=== PATIENT | male | born 1945 | race Caucasian/White ===

== ENCOUNTER 2017-04-14 22:02 | Inpatient (IN) | payer MEDICARE ==
[~2017-04-14] VITALS: Ht 185.4 cm; Wt 115.4 kg
--- NOTE | ~2017-04-14 | PR ---
[place], [place] PROGRESS NOTE NAME: STEPHENIE HARPER UNIT #: [id number] ROOM: 526 DOCTOR: JERAMY DOWLING MD BIRTHDATE: [birth year] DOS: 04/16/2017 REASON FOR VISIT: Nonsustained ventricular tachycardia. SUBJECTIVE: The patient denies any chest pain, shortness of breath, complaining of being tired and fatigued, but no fever, no chills. Also having some lower extremity edema. No chest pains, no palpitations. REVIEW OF SYSTEMS: Review of the 8 systems negative except as mentioned above. RHYTHM STRIPS: The patient was in sinus rhythm. The patient had a 5-beat wide complex tachycardia, asymptomatic. PHYSICAL EXAMINATION: VITAL SIGNS: Blood pressure 114/59, pulse 98, respiratory rate 16. GENERAL: Alert, comfortable, in no acute distress. HEENT: Pupils are round and equal. No jaundice. Tongue was moist and pharynx clear. NECK: Supple, no distended neck veins, no carotid bruit. CHEST: Symmetrical, nontender. LUNGS: A few scattered rhonchi. HEART: Regular rhythm, no S3. Grade 1/6 systolic murmur. ABDOMEN: Obese, nontender. EXTREMITIES: Showed 1+ pitting edema bilaterally. Distal pulses palpable. SKIN: Warm and dry. No cyanosis, no clubbing. NEUROLOGIC: The patient is alert, oriented. RECTAL: Deferred. MEDICATIONS AND ALLERGIES: Reviewed. IMPRESSION: 1. Nonsustained ventricular tachycardia, 5 beats, asymptomatic. 2. Mild valvular heart disease, mild mitral regurgitation. 3. History of coronary artery disease. 4. Chronic kidney disease. 5. Obesity. 6. Home oxygen. 7. Tobacco use. RECOMMENDATIONS: Continue his current medications including metoprolol and Bumex. The patient is advised to keep his feet elevated. Check his magnesium level due to his 5-beat nonsustained V-tach. This is probably due to LV hypertrophy. He had normal LV function by 2D echo with EF 60%. The magnesium levels are normal. Cardiology will see as needed. [place], [place] PROGRESS NOTE NAME: STEPHENIE HARPER UNIT #: [id number] ROOM: 526 DOCTOR: JERAMY DOWLING MD BIRTHDATE: [birth year] Above treatment discussed with the patient and his family and all questions were answered. Risk factor modification for diet, exercise, weight loss as well as to quit smoking discussed. JERAMY DOWLING MD CM:HECTOR [id number] JERAMY DOWLING MD 04/16/17 2210 interface
--- NOTE | ~2017-04-14 | PR ---
[place], [place] PROGRESS NOTE NAME: STEPHENIE HARPER UNIT #: [id number] ROOM: 526 DOCTOR: SHWETA WOOD MD BIRTHDATE: [birth year] DOS: 04/20/2017 SUBJECTIVE: The patient was seen at his bedside today, 04/20/2017, for followup of acute on chronic diastolic heart failure and hypertension. The patient is sitting up and alert. He states that he had trouble breathing earlier, but it got better when he was given a breathing treatment. The patient is somewhat irritated today. He states that he is not getting fast enough service with his breathing treatments. He is also concerned about the status of his left kidney which he states has a stent in the ureter. He wants to know if someone can check the status of the stent. PHYSICAL EXAMINATION: VITAL SIGNS: Today, his pulse is 86 and regular, blood pressure is 108/51. He is afebrile. He weighs 115.1 kilograms with a body mass index of 33.5. NECK: Supple. He has no jugular distention. CHEST: Clear. HEART: Has a regular rhythm with an S4 gallop. ABDOMEN: Benign. EXTREMITIES: Showed trace edema bilaterally. LABORATORY DATA: Sodium today is 137 with potassium of 3.5, BUN of 42 and creatinine of 1.93. IMPRESSION: 1. Acute on chronic diastolic congestive heart failure, now compensated. 2. Mild mitral insufficiency. 3. History of coronary artery disease. The patient has no angina at this time. 4. Chronic renal insufficiency with worsening renal failure during this hospitalization. 5. Episode of nonsustained ventricular tachycardia, which has not yet recurred since its initial event. The patient does have normal left ventricular systolic function. 6. Chronic respiratory failure. The patient is on home oxygen. 7. Tobacco abuse. PLAN: The patient's BUN and creatinine continue to rise. I will decrease his bumetanide to 1 mg daily and we will continue to monitor his renal functions. I will defer assessment of his ureteral stent to his primary physicians. I thank the hospitalist service for asking our advice regarding his care. [place], [place] PROGRESS NOTE NAME: MEREDITHSTEPHENIE Rodriguez UNIT #: [id number] ROOM: 526 DOCTOR: SHWETA WOOD MD BIRTHDATE: [birth year] SHWETA WOOD MD CM:PNTRANS [phone] SHWETA WOOD MD 04/20/172325 interface
--- NOTE | ~2017-04-14 | PR ---
[place], [place] PROGRESS NOTE NAME: MEREDITHSTEPHENIE Rodriguez UNIT #: [id number] ROOM: 526 DOCTOR: JERAMY DOWLING MD BIRTHDATE: [birth year] DOS: 04/17/2017 REASON FOR VISIT: Hypertension, nonsustained V-tach. HISTORY OF PRESENT ILLNESS: The patient is better. Breathing is better. Edema is improving. Denies any chest pain, palpitations, dizziness. No orthopnea. REVIEW OF SYSTEMS: Review of the 8 systems negative except as mentioned above. PHYSICAL EXAMINATION: VITAL SIGNS: Blood pressure ____, pulse 78, respiratory rate 20. Rhythm strips, the patient is in sinus rhythm. GENERAL: Alert, comfortable, in no acute distress. HEENT: Pupils are round and equal. Tongue was moist. NECK: Supple. No distended neck veins. No carotid bruit. CHEST: Nontender. LUNGS: A few scattered rhonchi, but good air entry bilaterally. HEART: Regular rhythm. No S3. No palpable thrills. ABDOMEN: Morbidly obese, nontender. EXTREMITIES: Show 1+ edema. Distal pulses are palpable. SKIN: Warm and dry. No cyanosis, no clubbing. MEDICATIONS AND ALLERGIES: Reviewed. IMPRESSION: 1. Nonsustained ventricular tachycardia. No recurrence and his magnesium levels are normal. Left ventricular systolic function is normal. 2. Hypertension, stable. 3. Congestive heart failure, acute on chronic diastolic dysfunction. Continue diuretics. 4. Mild valvular heart disease, mild mitral regurgitation. 5. Coronary artery disease, stable. 6. Chronic kidney disease: Monitor his renal function. 7. Non-morbid obesity. 8. The patient was on home oxygen. 9. Tobacco abuse. The patient has been counseled to quit smoking. RECOMMENDATIONS: There is no family at bedside. Continue medications as above. Cardiology will see as needed and switch to p.o. diuretics tomorrow. [place], [place] PROGRESS NOTE NAME: HARPERSTEPHENIE UNIT #: [id number] ROOM: 526 DOCTOR: JERAMY DOWLING MD BIRTHDATE: [birth year] JERAMY DOWLING MD CM:HECTOR [id number] JERAMY DOWLING MD 04/17/17 1608 interface
--- NOTE | ~2017-04-14 | PR ---
[place], [place] PROGRESS NOTE NAME: STEPHENIE HARPER [facility] #: [id number] UNIT #: [id number] ROOM: 526 DOCTOR: SHWETA WOOD MD BIRTHDATE: [birth year] DOS: 04/19/2017 CARDIOLOGY PROGRESS NOTE SUBJECTIVE: The patient was seen at his bedside this morning 04/19/2017 for followup of acute on chronic diastolic heart failure and hypertension with an episode of nonsustained ventricular tachycardia. The patient was sleeping when I entered the room. He was lying flat in bed on his right side and breathing easily. He denied any cough or chest pain. He still does have some mild lightheadedness when he sits up quickly. PHYSICAL EXAMINATION: VITAL SIGNS: His pulse is 100 and regular, blood pressure is 114/75, he has temperature of 99.2. I and O for the last 24 hours are 2135 and 3875 mL, respectively, with a negative fluid balance of 1740 for the last 24 hours. His weight is down one-half kilogram from yesterday. NECK: Supple. He has no jugular distention. Carotids are full. LUNGS: Respirations are unlabored. His chest has decreased breath sounds at the bases, but no wheezes or rales. HEART: Has a regular rhythm with a fourth heart sound, but no third heart sound or murmur. The PMI could not be felt. ABDOMEN: Obese but otherwise benign. EXTREMITIES: Wrapped but he had no obvious edema. LABORATORY STUDIES: Today showed a hemoglobin of 11.5 with hematocrit of 36.6, white count 5300, and platelet count 184,000. Sodium is 137 with potassium 3.8, carbon dioxide is 41 and rising, BUN is 36 and rising, creatinine is 1.68 and rising. IMPRESSION: 1. Acute on chronic diastolic congestive heart failure, which appears to have been compensated. 2. Mild mitral insufficiency. 3. History of coronary artery disease without angina at present. 4. Chronic renal insufficiency. 5. Episode of nonsustained ventricular tachycardia, which has not recurred. The patient has normal left ventricular systolic function. 6. Chronic respiratory failure. The patient is on home oxygen. 7. Tobacco abuse. PLAN: Despite the fact that he was switched from IV to oral diuretics, he continues to diurese with gradually worsening signs of prerenal azotemia. I would like to continue his current dose of diuretics for one more day, and if his BUN and creatinine continue to increase, then we will have to think about decreasing his diuretics beginning tomorrow. No other cardiac workup is planned at this time. I thank the hospitalist physicians for asking our advice regarding his care. [place], [place] PROGRESS NOTE NAME: STEPHENIE HARPER UNIT #: [id number] ROOM: 526 DOCTOR: SHWETA WOOD MD BIRTHDATE: [birth year] SHWETA WOOD MD CM:PNTRANS [id number] SHWETA WOOD MD 04/19/17 1429 interface
--- NOTE | ~2017-04-14 | PR ---
[place], [place] PROGRESS NOTE NAME: STEPHENIE HARPER UNIT #: [id number] ROOM: 526 DOCTOR: SHWETA WOOD MD BIRTHDATE: [birth year] DOS: 04/18/2017 SUBJECTIVE: The patient was seen at his bedside today, 04/18/2017 for followup of his acute on chronic diastolic heart failure with hypertension and an episode of nonsustained ventricular tachycardia. The patient states that he is breathing easily. He was sitting at the side of his bed when I walked in and denied any palpitations or chest pain. He does admit that he is a little lightheaded when he stands up, but this seems to be getting better. PHYSICAL EXAMINATION: VITAL SIGNS: Today, his pulse is 95 and regular, blood pressure is 92/58. He has a temperature of 99.6. NECK: Supple. He has no jugular distention. Carotids are full. RESPIRATIONS: Unlabored. CHEST: Decreased breath sounds at the bases, but no wheezes or rales. HEART: Has a regular rhythm with a fourth heart sound, but no third heart sound or murmur. The PMI is not displaced. ABDOMEN: Obese, but otherwise benign. EXTREMITIES: Showed no edema. His legs are wrapped. LABORATORY DATA: Hemoglobin today is 12.0 with a white count of 5600 and platelet count of 197,000. Sodium is 135, potassium 3.7, BUN 27, creatinine 1.59 and improving. IMPRESSION: 1. Acute on chronic diastolic congestive heart failure, which appears to be well controlled. 2. Mild mitral insufficiency. 3. History of coronary artery disease without angina at this time. 4. Chronic renal insufficiency. 5. Episode of nonsustained ventricular tachycardia, which has not recurred. The patient has normal left ventricular function. 6. Chronic respiratory failure. The patient is on home oxygen. 7. Tobacco abuse. PLAN: Continue to monitor his electrolytes and maintain adequate potassium and magnesium levels. The patient was switched to oral diuretics and this should help with his orthostatic lightheadedness. We will continue to follow him intermittently. I thank the hospitalist physicians for asking our advice regarding his care. [place], [place] PROGRESS NOTE NAME: HARPERSTEPHENIE UNIT #: [id number] ROOM: 526 DOCTOR: SHWETA WOOD MD BIRTHDATE: [birth year] SHWETA WOOD MD CM:PNTRANS [phone] [id number] SHWETA WOOD MD 04/18/172044 interface
[~2017-04-14 22:02] MED LIST: ABILIFY10 MG PO; ACCUPRIL40 MG PO; AUGMENTIN 875 M1 TAB PO; MEDROL DOSEPAK4 MG PO; PROVENTIL0.09 MG/AC IH; [UNRECOGNIZED DRUG - REMARK]
[2017-04-14 22:08] VITALS: BP 139/105
[2017-04-14 22:30] VITALS: BP 126/62
[2017-04-14 22:43] VITALS: BP 126/87
[2017-04-14 22:45] LABS: BASO % 0.2 % (0.0-1.0); EOS # 0.1 10*3/uL (0.0-0.4); EOS % 0.9 % (1.0-4.0); HEMATOCRIT 39.7 % (42.0-52.0); HEMOGLOBIN 12.5 g/dl (14.0-18.0); IG # 0.1 10*3/uL (0.0-0.1); LYMPH # 1.2 10*3/uL (1.3-4.4); LYMPH % 13.2 % (27.0-41.0); MEAN CELL VOLUME 93.9 fl (80.0-94.0); MEAN CORPUSCULAR HGB 29.6 pg (27.0-31.0); MEAN CORPUSCULAR HGB CONC 31.5 g/dl (33.0-37.0); MEAN PLATELET VOLUME 11.1 fl (9.6-12.3); MONO # 0.8 10*3/uL (0.1-1.0); MONO % 8.9 % (3.0-9.0); NEUT # 6.9 10*3/uL (2.3-7.9); NEUT % 76.2 % (47.0-73.0); PLATELET COUNT AUTOMATED 160 10*3/uL (130-400); RED BLOOD COUNT 4.23 10*6/uL (4.50-5.90); WHITE BLOOD COUNT 9.1 10*3/uL (4.8-10.8)
[2017-04-14 22:53] VITALS: BP 106/68
[2017-04-14 22:55] LABS: PROTHROMBIN TIME 10.5 SECONDS (9.0-12.4)
[2017-04-14 23:01] LABS: ALBUMIN 3.1 gm/dl (3.1-4.5); BILIRUBIN, TOTAL 0.4 mg/dl (0.2-1.0); C-REACTIVE PROTEIN 8.58 MG/DL (0-0.3); POTASSIUM 3.7 mmol/L (3.5-5.1); TOTAL PROTEIN 7.5 gm/dL (6.4-8.2); TROPONIN I 0.03 ng/ml (<0.045)
[2017-04-14 23:11] VITALS: BP 118/56
[2017-04-14 23:28] VITALS: BP 112/82
[2017-04-15 00:06] LABS: BILIRUBIN NEGATIVE (NEGATIVE); BLOOD NEGATIVE (NEGATIVE); CLARITY SL CLOUDY (CLEAR); COLOR YELLOW (YELLOW); GLUCOSE NEGATIVE (NEGATIVE); KETONE NEGATIVE (NEGATIVE); LEUKO ESTERASE NEGATIVE (NEGATIVE); NITRITE NEGATIVE (NEGATIVE); PH 5.5 (5.0-9.0); PROTEIN NEGATIVE (NEGATIVE); UROBILINOGEN 0.2 E.U./dl (0.2-1.0)
[2017-04-15 00:14] LABS: BACTERIA 4+; EPITHELIAL CELLS 0-2; RBC 0-2 rbc/hpf (0-2); URINE REFLEX COMMENT YES (NO); WBC 0-2 wbc/hpf (0-5)
[2017-04-15 01:30] VITALS: BP 160/86
[2017-04-15 01:51] LABS: ABG BASE EXCESS 4.3 mmol/L (-2.0-2.0); ABG CO2 CONTENT 32.1 mmol/L (23-27); ABG HCO3 30.4 mmol/l (22-26); ABG TEMPERATURE 99.1 F (98.0-99.0); ARTERIAL BLOOD GAS PH 7.359 (7.35-7.45)
[2017-04-15] MEDS ORDERED: ACTOS15 M1 PO (03:19)
[2017-04-15] MEDS ORDERED: TUDORZA PRESS400 MCG INH (03:19)
[2017-04-15] MEDS ORDERED: SYMBICORT1 AE1 INH (03:20)
[2017-04-15] MEDS ORDERED: ALBUTEROL 3 ML 33 ML INH (03:21)
[2017-04-15] MEDS ORDERED: CLARITIN10 MG PO (03:21)
[2017-04-15] MEDS ORDERED: LOVASTATIN40 MG PO (03:22)
[2017-04-15] MEDS ORDERED: BP MED (03:22)
[2017-04-15] MEDS ORDERED: FLONASE ALLERG9.9 ML NAS (03:22)
[2017-04-15 04:00] VITALS: BP 119/68
[2017-04-15 04:31] LABS: BASO % 0.3 % (0.0-1.0); EOS # 0.1 10*3/uL (0.0-0.4); EOS % 0.9 % (1.0-4.0); HEMATOCRIT 41.1 % (42.0-52.0); LYMPH # 1.1 10*3/uL (1.3-4.4); LYMPH % 12.6 % (27.0-41.0); MEAN CELL VOLUME 94.7 fl (80.0-94.0); MEAN CORPUSCULAR HGB CONC 31.6 g/dl (33.0-37.0); MEAN PLATELET VOLUME 11.6 fl (9.6-12.3); MONO # 0.7 10*3/uL (0.1-1.0); MONO % 8.3 % (3.0-9.0); NEUT # 6.8 10*3/uL (2.3-7.9); NEUT % 77.7 % (47.0-73.0); PLATELET COUNT AUTOMATED 157 10*3/uL (130-400); RED BLOOD COUNT 4.34 10*6/uL (4.50-5.90); WHITE BLOOD COUNT 8.7 10*3/uL (4.8-10.8)
[2017-04-15 04:46] LABS: HEMOGLOBIN A1c 6.3 % (4.8-5.6)
[2017-04-15 05:00] LABS: FREE T4 1.45 ng/dl (0.76-1.46); PHOSPHOROUS 3.6 mg/dL (2.5-4.9); POTASSIUM 3.5 mmol/L (3.5-5.1)
[2017-04-15 05:08] LABS: THYROID STIM HORMONE (HS) 1.05 uIU/ml (0.358-4.75)
[2017-04-15 06:05] LABS: PROTHROMBIN TIME 10.4 SECONDS (9.0-12.4)
[2017-04-15 07:31] LABS: FOLIC ACID 15.6 ng/mL (>5.38); VITAMIN D, 25-HYDROXY 26.7 ng/mL (30-100)
[2017-04-15 08:00] VITALS: BP 108/67
[2017-04-15 12:00] VITALS: BP 100/50
[2017-04-15 16:00] VITALS: BP 120/58
[2017-04-15 20:00] VITALS: BP 122/64
[2017-04-16] VITALS: BP 96/52
[2017-04-16 07:46] LABS: BASO % 0.3 % (0.0-1.0); EOS # 0.2 10*3/uL (0.0-0.4); HEMATOCRIT 41.7 % (42.0-52.0); HEMOGLOBIN 12.9 g/dl (14.0-18.0); LYMPH # 1.1 10*3/uL (1.3-4.4); LYMPH % 14.8 % (27.0-41.0); MEAN CELL VOLUME 94.6 fl (80.0-94.0); MEAN CORPUSCULAR HGB 29.3 pg (27.0-31.0); MEAN CORPUSCULAR HGB CONC 30.9 g/dl (33.0-37.0); MEAN PLATELET VOLUME 11.4 fl (9.6-12.3); MONO # 0.8 10*3/uL (0.1-1.0); MONO % 10.4 % (3.0-9.0); NEUT # 5.2 10*3/uL (2.3-7.9); NEUT % 71.2 % (47.0-73.0); PLATELET COUNT AUTOMATED 162 10*3/uL (130-400); RED BLOOD COUNT 4.41 10*6/uL (4.50-5.90); RED CELL DISTRI WIDTH 15.7 % (0-14.5); WHITE BLOOD COUNT 7.2 10*3/uL (4.8-10.8)
[2017-04-16 07:58] LABS: POTASSIUM 3.7 mmol/L (3.5-5.1)
[2017-04-16 08:00] VITALS: BP 126/88
[2017-04-16 12:00] VITALS: BP 114/51
[2017-04-16] MEDS ORDERED: TOPROL XL50 M1 PO (12:25)
[2017-04-16 16:00] VITALS: BP 125/79
[2017-04-16 20:00] VITALS: BP 120/82
[2017-04-17] VITALS: BP 98/52
[2017-04-17 06:02] LABS: POTASSIUM 3.5 mmol/L (3.5-5.1)
[2017-04-17 06:19] LABS: BASO % 0.3 % (0.0-1.0); EOS # 0.3 10*3/uL (0.0-0.4); EOS % 4.3 % (1.0-4.0); HEMATOCRIT 36.5 % (42.0-52.0); HEMOGLOBIN 11.6 g/dl (14.0-18.0); LYMPH # 1.5 10*3/uL (1.3-4.4); LYMPH % 25.8 % (27.0-41.0); MEAN CELL VOLUME 93.8 fl (80.0-94.0); MEAN CORPUSCULAR HGB 29.8 pg (27.0-31.0); MEAN CORPUSCULAR HGB CONC 31.8 g/dl (33.0-37.0); MEAN PLATELET VOLUME 11.5 fl (9.6-12.3); MONO # 0.6 10*3/uL (0.1-1.0); MONO % 10.4 % (3.0-9.0); NEUT # 3.4 10*3/uL (2.3-7.9); NEUT % 58.9 % (47.0-73.0); PLATELET COUNT AUTOMATED 167 10*3/uL (130-400); RED BLOOD COUNT 3.89 10*6/uL (4.50-5.90); RED CELL DISTRI WIDTH 15.3 % (0-14.5); WHITE BLOOD COUNT 5.9 10*3/uL (4.8-10.8)
[2017-04-17 08:00] VITALS: BP 106/52
[2017-04-17 12:00] VITALS: BP 109/56
[2017-04-17 16:00] VITALS: BP 114/69
[2017-04-17 20:00] VITALS: BP 104/58
[2017-04-18] VITALS: BP 104/58; BP 128/71
[2017-04-18 04:00] VITALS: BP 126/70
[2017-04-18 06:07] LABS: BASO % 0.4 % (0.0-1.0); EOS # 0.2 10*3/uL (0.0-0.4); EOS % 3.8 % (1.0-4.0); HEMATOCRIT 38.4 % (42.0-52.0); LYMPH # 1.3 10*3/uL (1.3-4.4); LYMPH % 23.5 % (27.0-41.0); MEAN CELL VOLUME 93.4 fl (80.0-94.0); MEAN CORPUSCULAR HGB 29.2 pg (27.0-31.0); MEAN CORPUSCULAR HGB CONC 31.3 g/dl (33.0-37.0); MEAN PLATELET VOLUME 11.6 fl (9.6-12.3); MONO # 0.5 10*3/uL (0.1-1.0); MONO % 8.8 % (3.0-9.0); NEUT # 3.5 10*3/uL (2.3-7.9); NEUT % 63.3 % (47.0-73.0); PLATELET COUNT AUTOMATED 197 10*3/uL (130-400); RED BLOOD COUNT 4.11 10*6/uL (4.50-5.90); WHITE BLOOD COUNT 5.6 10*3/uL (4.8-10.8)
[2017-04-18 06:33] LABS: POTASSIUM 3.7 mmol/L (3.5-5.1)
[2017-04-18 08:00] VITALS: BP 130/55
[2017-04-18 12:00] VITALS: BP 115/75
[2017-04-18 16:00] VITALS: BP 92/58
[2017-04-18 20:26] VITALS: BP 150/80
[2017-04-19] VITALS: BP 105/51
[2017-04-19 07:04] LABS: BASO % 0.2 % (0.0-1.0); EOS # 0.2 10*3/uL (0.0-0.4); HEMATOCRIT 36.6 % (42.0-52.0); HEMOGLOBIN 11.5 g/dl (14.0-18.0); LYMPH # 1.4 10*3/uL (1.3-4.4); LYMPH % 26.2 % (27.0-41.0); MEAN CELL VOLUME 93.6 fl (80.0-94.0); MEAN CORPUSCULAR HGB 29.4 pg (27.0-31.0); MEAN CORPUSCULAR HGB CONC 31.4 g/dl (33.0-37.0); MEAN PLATELET VOLUME 11.7 fl (9.6-12.3); MONO # 0.5 10*3/uL (0.1-1.0); MONO % 9.2 % (3.0-9.0); NEUT # 3.2 10*3/uL (2.3-7.9); NEUT % 59.8 % (47.0-73.0); PLATELET COUNT AUTOMATED 184 10*3/uL (130-400); RED BLOOD COUNT 3.91 10*6/uL (4.50-5.90); WHITE BLOOD COUNT 5.3 10*3/uL (4.8-10.8)
[2017-04-19 07:38] LABS: POTASSIUM 3.8 mmol/L (3.5-5.1)
[2017-04-19 08:00] VITALS: BP 114/75
[2017-04-19 12:00] VITALS: BP 101/56
[2017-04-19 16:00] VITALS: BP 114/56
[2017-04-19 20:00] VITALS: BP 109/60
[2017-04-20] VITALS: BP 102/67
[2017-04-20 07:09] LABS: POTASSIUM 3.5 mmol/L (3.5-5.1)
[2017-04-20 08:00] VITALS: BP 126/72
[2017-04-20 12:00] VITALS: BP 128/66
[2017-04-20 16:00] VITALS: BP 108/51
[2017-04-20 20:00] VITALS: BP 130/67
[2017-04-21] VITALS: BP 124/69
[2017-04-21 07:16] LABS: BASO % 0.2 % (0.0-1.0); HEMATOCRIT 38.5 % (42.0-52.0); HEMOGLOBIN 11.9 g/dl (14.0-18.0); LYMPH # 0.6 10*3/uL (1.3-4.4); LYMPH % 10.2 % (27.0-41.0); MEAN CELL VOLUME 93.7 fl (80.0-94.0); MEAN CORPUSCULAR HGB CONC 30.9 g/dl (33.0-37.0); MEAN PLATELET VOLUME 11.8 fl (9.6-12.3); MONO # 0.1 10*3/uL (0.1-1.0); MONO % 0.9 % (3.0-9.0); NEUT # 4.9 10*3/uL (2.3-7.9); PLATELET COUNT AUTOMATED 220 10*3/uL (130-400); RED BLOOD COUNT 4.11 10*6/uL (4.50-5.90); WHITE BLOOD COUNT 5.6 10*3/uL (4.8-10.8)
[2017-04-21 07:39] LABS: POTASSIUM 4.3 mmol/L (3.5-5.1)
[2017-04-21 08:00] VITALS: BP 115/60
[2017-04-21 12:00] VITALS: BP 125/71
[2017-04-21 16:00] VITALS: BP 140/65
[2017-04-21] MEDS ORDERED: BUMETANIDE1 MG PO (17:01)
[2017-04-21] MEDS ORDERED: METOPROLOL SUCC25 M2 PO (17:01)
[2017-04-21] MEDS ORDERED: D-1000 185 MG-11 TAB PO (17:01)
[2017-04-21 20:00] VITALS: BP 125/72
[2017-04-22] VITALS: BP 124/84
[2017-04-22 08:00] VITALS: BP 116/68
[2017-04-22 12:00] VITALS: BP 119/64
[2017-04-22 16:00] VITALS: BP 102/53
== END 2017-04-22 20:00 | disposition home health service (06) | DRG 871 ==
LOC: ED 22:02 → 5E 04-15 00:34 → ICCU 04-15 00:34 → 5E 04-15 14:28
PROVIDERS: Family Medicine; Internal Medicine; Internal Medicine Cardiovascular Disease; Internal Medicine Hospice and Palliative Medicine; Internal Medicine Nephrology; Student in an Organized Health Care Education/Training Program
DX: A41.9 Sepsis, unspecified organism (principal); I50.31 Acute diastolic (congestive) heart failure; J96.21 Acute and chronic respiratory failure with hypoxia; E44.0 Moderate protein-calorie malnutrition; J18.9 Pneumonia, unspecified organism; J44.0 Chronic obstructive pulmonary disease with (acute) lower respiratory infection; Z99.81 Dependence on supplemental oxygen; I13.0 Hypertensive heart and chronic kidney disease with heart failure and stage 1 through stage 4 chronic kidney disease, or unspecified chronic kidney disease; K76.0 Fatty (change of) liver, not elsewhere classified; J44.1 Chronic obstructive pulmonary disease with (acute) exacerbation; R16.0 Hepatomegaly, not elsewhere classified; J96.22 Acute and chronic respiratory failure with hypercapnia; N30.00 Acute cystitis without hematuria; D64.9 Anemia, unspecified; R65.20 Severe sepsis without septic shock; D72.810 Lymphocytopenia; N18.3 Chronic kidney disease, stage 3 (moderate); E78.5 Hyperlipidemia, unspecified; E66.9 Obesity, unspecified; I25.10 Atherosclerotic heart disease of native coronary artery without angina pectoris; I71.4 Abdominal aortic aneurysm, without rupture; F17.200 Nicotine dependence, unspecified, uncomplicated; R73.9 Hyperglycemia, unspecified; I34.0 Nonrheumatic mitral (valve) insufficiency; Z88.1 Allergy status to other antibiotic agents; Z68.33 Body mass index [BMI] 33.0-33.9, adult; Z88.8 Allergy status to other drugs, medicaments and biological substances; Z71.6 Tobacco abuse counseling; Z79.51 Long term (current) use of inhaled steroids; Z79.899 Other long term (current) drug therapy

== ENCOUNTER → 2017-08-22 | Outpatient (CLI) | payer MEDICARE ==
[~2017-08-22] MED LIST changes: +ACTOS15 M1 PO; +ALBUTEROL 3 ML 33 ML INH; +BP MED; +BUMETANIDE1 MG PO; +CLARITIN10 MG PO; +D-1000 185 MG-11 TAB PO; +FLONASE ALLERG9.9 ML NAS; +LOVASTATIN40 MG PO; +METOPROLOL SUCC25 M2 PO; +SYMBICORT1 AE1 INH; +TOPROL XL50 M1 PO; +TUDORZA PRESS400 MCG INH
[2017-08-22 14:59] LABS: CREATININE 1.76 mg/dL (0.70-1.30); POTASSIUM 4.9 mmol/L (3.5-5.1)
== END | disposition home or self-care (01) ==
LOC: LAB 14:14
PROVIDERS: Internal Medicine
DX: I12.9 Hypertensive chronic kidney disease with stage 1 through stage 4 chronic kidney disease, or unspecified chronic kidney disease (principal); N18.4 Chronic kidney disease, stage 4 (severe)

== ENCOUNTER → 2017-09-28 | Outpatient (CLI) | payer MEDICARE ==
[2017-09-28 14:20] LABS: BASO % 0.3 % (0.0-1.0); EOS # 0.2 10*3/uL (0.0-0.4); EOS % 2.8 % (1.0-4.0); HEMATOCRIT 35.6 % (42.0-52.0); HEMOGLOBIN 11.3 g/dl (14.0-18.0); LYMPH # 1.3 10*3/uL (1.3-4.4); LYMPH % 19.9 % (27.0-41.0); MEAN CELL VOLUME 94.2 fl (80.0-94.0); MEAN CORPUSCULAR HGB 29.9 pg (27.0-31.0); MEAN CORPUSCULAR HGB CONC 31.7 g/dl (33.0-37.0); MEAN PLATELET VOLUME 11.4 fl (9.6-12.3); MONO # 0.5 10*3/uL (0.1-1.0); MONO % 8.1 % (3.0-9.0); NEUT # 4.4 10*3/uL (2.3-7.9); NEUT % 68.4 % (47.0-73.0); PLATELET COUNT AUTOMATED 153 10*3/uL (130-400); RED BLOOD COUNT 3.78 10*6/uL (4.50-5.90); RED CELL DISTRI WIDTH 15.1 % (0-14.5); WHITE BLOOD COUNT 6.4 10*3/uL (4.8-10.8)
[2017-09-28 14:33] LABS: ALBUMIN 3.6 gm/dl (3.1-4.5); CREATININE 1.95 mg/dL (0.70-1.30); POTASSIUM 4.5 mmol/L (3.5-5.1); TOTAL PROTEIN 7.7 gm/dL (6.4-8.2)
== END | disposition home or self-care (01) ==
LOC: LAB 13:21
PROVIDERS: Urology
DX: I10 Essential (primary) hypertension (principal); E11.9 Type 2 diabetes mellitus without complications; E78.5 Hyperlipidemia, unspecified; N39.0 Urinary tract infection, site not specified

== ENCOUNTER → 2017-09-29 | Outpatient (CLI) | payer MEDICARE ==
[2017-09-29 10:39] LABS: BILIRUBIN NEGATIVE (NEGATIVE); BLOOD NEGATIVE (NEGATIVE); CLARITY SL CLOUDY (CLEAR); COLOR YELLOW (YELLOW); GLUCOSE NEGATIVE (NEGATIVE); KETONE NEGATIVE (NEGATIVE); LEUKO ESTERASE TRACE (NEGATIVE); NITRITE NEGATIVE (NEGATIVE); SPECIFIC GRAVITY <= 1.005 (1.005-1.030); UROBILINOGEN 0.2 E.U./dl (0.2-1.0)
[2017-09-29 11:04] LABS: BACTERIA 4+
== END ==
LOC: LAB 10:09
PROVIDERS: Urology
DX: E11.9 Type 2 diabetes mellitus without complications (principal); N39.0 Urinary tract infection, site not specified